=== PATIENT | male | born 1940 | race Caucasian/White ===

== ENCOUNTER 2017-03-13 20:42 | Emergency (ER) | payer MEDICARE, MEDICAID ==
[~2017-03-13] VITALS: Ht 190.5 cm; Wt 116.1 kg
[~2017-03-13 20:42] MED LIST: AMITIZA24 MCG PO; CARVEDILOL12.5 MG PO; HYDRALAZINE HCL25 M1 PO; METFORMIN1000 MG PO; POTASSIUM CHLO20 ME2 PO; PRAMIPEXOLE DIHY1 MG NG; SINEMET 25/1001 TAB PO
[2017-03-13] MEDS ORDERED: GABAPENTIN600 MG PO (20:54)
[2017-03-13] MEDS ORDERED: ACETAMINOPHEN &1 TA1 PO (20:56)
--- NOTE | 2017-03-13 21:04 | Emergency Room Report ---
History of Present Illness Time Seen by 2100 Presenting Problem in Triage Pt arrived:Wheelchair Presenting Problem:C/O INCREASED B/P AND UNABLE TO USE LEGS Onset of symptoms date/time:/ or onset unknown for:MEDICAL HX UNKNOWN Treatment Prior to Arrival: [employer] Provided by: Sepsis Risk Assessment: Temp: 100.4 B/P: 133/73 MAP: 93 Pulse: 82 Resp: 20 Recent fever? N Clinical Suspician of Infection? N Mental Status: 1 - Regular (Normal Baseline) Sepsis Risk:Low Sepsis Risk Have you (or family members/close friends) recently traveled outside the [place]? N If Yes, where/when: Have you had exposure to infectious disease within the past month? N TB? Other? Specify: Comment The patient states that he has felt ill for 1 week. He says his legs feel like weight. His feet are burning and tingling. He denies any weakness, burning, or tingling in his arms. No problems with speech. No headache. He denies back pain. Family states that he was here 2 weeks ago for low blood pressure. He says that his blood pressure has been doing well after he takes his medication. He is noted to have a low-grade fever here, he and family were unaware that he had a fever. He normally walks with a walker or cane. His relatives state that they had to wheel into the truck in a wheelchair and lift him into the truck today. ALLERGIES Coded Allergies: No Known Allergies (03/02/17) Home Medications Active Scripts Hydralazine Hcl (Hydralazine 25MG Tab) 25 MG PO BID #60 TAB Prov: 03/02/17 Reported Medications Lubiprostone (Amitiza) 24 MCG PO BID #180 POTASSIUM CHL (Potassium Chloride) 20 MEQ PO BID Pramipexole Dihydrochloride (Pramipexole) 1 MG NG TID CARBIDOPA/LEVODOPA (Carbidopa-Levodopa 25-100 Tab) 1 TAB PO QID METFORMIN HCL (Metformin) 1,000 MG PO BID Carvedilol 12.5 MG PO BID Gabapentin 600 MG PO BID #90 HYDROCODONE/ACETAMINOPHEN (Hydrocodon-Acetaminophn 10-325) 1 TAB PO DAILY #60 History Medical History General CAD? No Angina: No [place]: No Hypertension? Yes Hyperlipidemia? No CHF? No DVT? No PE? No COPD? No Asthma? No Anemia? No GERD? No Gastric ulcers? No GI Bleed? No Hernia? No Thyroid Problems? No Hypothyroidism? No CVA? No Seizures? No Diabetes? Yes Insulin Dependent: No Insulin Pump: No Home FSBS? Yes Renal Insuffiency? No End Stage Renal Disease? No UTI? No Stones? No BPH? No GB Disease: No Nephritic Syndrome? No Asplenia? No Hepatitis? No Sickle Cell Disease? No Arthritis? Yes Migraines? No Cataracts? Yes Glaucoma? No MRSA? No HIV? No TB? No Anxiety? No Depression? No Cancer? Yes Site: PROSTATE More? Yes Additional hx: PARKINSONS Immunization Hx DT/Tetanus Unknown Surgical Hx Previous Surgery?Y LT KNEE REPLACEMENT Hernia Repair RT ANKLE X4 CHOLECYSTECTOMY Social History Smoking Hx Smoker: Never Smoker Tobacco: No Alcohol Alcohol: No Review of Systems All Other Systems Reviewed and Negative Constitutional denies fever, malaise, weakness Eyes denies blindness, denies blurred vision ENT denies: ear pain, nose discharge, throat pain. Respiratory denies cough, denies shortness of breath Cardiovascular denies chest pain Gastrointestinal denies abdominal pain, denies diarrhea, denies vomiting Genitourinary denies: dysuria, frequency. Musculoskeletal other (chronic R leg pain) Skin denies rash Psychiatric/Neurological denies headache Physical Exam Vital Signs Vital Signs Date Time Temp Pulse Resp B/P Pulse O2 O2 Flow FiO2 Ox Delivery Rate 03/14 0020 63 20 134/76 95 03/13 2341 98.3 104 20 135/73 95 03/13 2301 98.5 108 20 129/74 95 03/13 2149 98.5 136 20 114/60 91 03/13 2043 100.4 82 20 133/73 94 General Appearance malaise Eye Exam - bilateral eye normal exam, bilateral eye PERRL, bilateral eye EOMI Ear, Nose, Throat hearing grossly normal, normal ENT inspection Neck normal inspection, non-tender, supple, full range of motion Respiratory Status Yes: trachea midline, chest symmetrical, non tender chest. No: respiratory distress. Lung Sounds bilateral: normal breath sounds, lungs clear. Cardiovascular normal exam, regular rate/rhythm, no peripheral edema, no gallop, no JVD, no murmur, no rub, normal peripheral pulses Peripheral Pulses Pulses normal Yes Gastrointestinal normal bowel sounds, normal exam, non tender, soft, no organomegaly Extremities non-tender, normal range of motion, normal inspection, venous stasis changes bilaterally, no signs of cellulitis, normal warmth, pulses, capillary refill. Normal movement of feet and toes. Able to lift each leg independently off the bed. Normal sensation. Neurologic alert, imaging analyst II-XII nml as tested, normal exam, oriented x 3, tremor of hands Mental status normal mood/affect Skin intact, normal color, warm/dry Lymphatic no adenopathy Medical Decision Making LABS/Meds/Orders Pt receiving controlled substance in ED? No Results/Orders Laboratory Tests 03/13/17 2359: Creatine Kinase 92 03/13/175: Influenza Type A Ag NOT DETECTED, Influenza Type B Ag NOT DETECTED 03/13/172134: Urine Color YELLOW, Urine Appearance CLEAR, Urine pH 6.0, Ur Specific [place] 1.025, Urine Protein 2+ H, Urine Ketones NEGATIVE, Urine Blood NEGATIVE, Urine Nitrate NEGATIVE, Urine Bilirubin NEGATIVE, Urine Urobilinogen 2.0, Ur Leukocyte Esterase NEGATIVE, Urine RBC 3-5, Urine WBC 3-5, Ur Squamous Epith Cells 3-5, Amorphous Sediment OCC, Urine Bacteria 1+, Hyaline Casts 3-5, Fine Granular Casts 3-5, Urine Mucus 1+, Urine Glucose NEGATIVE 03/13/172051: Lactic Acid 1.4 03/13/172051: Sodium 143, Potassium 4.7, Chloride 107, Carbon Dioxide 27, BUN 33 H, Creatinine 1.4 H, Estimated Creat Clear 75, Estimated GFR (MDRD) 49, Glucose 119 H, Calcium 8.4 L, Total Bilirubin 1.0, AST 17, ALT 19, Alkaline Phosphatase 102, B-Natriuretic Peptide 108 H, Total Protein 6.7, Albumin 3.3 L , Globulin 3.4 H, Albumin/Globulin Ratio 1.0 L, WBC 6.3, RBC 4.61, Hgb 14.1, Hct 43.3, MCV 93.9, RDW 13.2, Plt Count 177, MPV 6.6 L, Gran % 56.6, Gran # 3.5 , Lymphocytes % 33.2, Monocytes % 5.9, Eosinophils % 3.6, Basophils % 0.7, Lymphocytes # 2.1, Monocytes # 0.4, Eosinophils # 0.2, Basophils # 0.0, PUBS MCHC 32.7, MCH 30.7 Current Medication Orders Sig/Martín Start time Last Medication Dose Route Stop Time Status Admin Sodium Chloride 1,000 ML .STK-MED ONE 03/13 2302 DC IV Sodium Chloride 1,000 ML .Q1H1M 03/13 2200 DC 03/13 IV 03/13 Acetaminophen 1,000 MG ONCE ONE 03/13 2100 DC 03/13 PO 03/13 Sodium Chloride 10 ML PRN PRN 03/13 2100 AC IV 03/14 2048 Acetaminophen 0 .STK-MED ONE 03/13 2051 DC PO Orders Procedure Date/time Status CPK 03/13 2359 Complete INFLUENZA A&B ANTIGENS 03/13 2108 Complete ELECTROCARDIOGRAM REQUEST 03/13 2050 Active CHEST-PORTABLE 03/13 2050 Active IV SALINE LOCK 03/13 2050 Active CULTURE, BLOOD 03/13 2050 Active URINALYSIS/COMPLETE 03/13 2050 Complete LACTIC ACID 03/13 2050 Complete CBC WITH AUTO DIFF 03/13 2050 Complete CHEM 12 PROFILE 03/13 2050 Complete BRAIN NATRIURETIC PEPTIDE 03/13 2050 Complete 12 LEAD EKG-SATISH (INITIAL) 03/13 UNK Active CM/EKG CM/EKG Comments EKG interpreted by Joe Connelly MD: Rhythm: sinus Rate: 80 [place]: LEFT Ectopy: none Conduction: normal ST Segment Changes: none T Wave Changes: none Q Waves: none Poor R-wave progression No evidence of acute ischemia or injury Baseline artifact present, but I consider the EKG adequate for accurate interpretation. XRAY/CT/US XRAY/CT/US XRAY chest Comment X-ray interpreted by Joe Connelly M.D. No infiltrate, pneumothorax, pleural effusion, or wide mediastinum. Progress - 11:40 PM: Case discussed with Dr. Dominique for Dr. Bah. I am concerned about the possibility of Guillain-Blum syndrome. He requested that we try to transfer the patient to [place] for neurology evaluation. 2349: Case discussed with Dr. Cortes, [facility] neurologist. She accepts the patient be transferred to their emergency department. Departure Departure Disposition DC/XFER from ER to [facility] Clinical Impression Primary Impression: Bilateral leg weakness Secondary Impressions: Paresthesia of bilateral legs Condition STABLE Referrals Chalino Bah MD (Family) ED Critical Care Critical Care No at 0044
[2017-03-13 21:07] LABS: HEMOGLOBIN 14.1 g/dL (14.1-18.0); LYMPH # 2.1 K/mm3 (0.7-4.5); LYMPH % 33.2 % (10-50)
[2017-03-13 21:48] LABS: URINE BILIRUBIN - DIPSTICK NEGATIVE (NEG); URINE BLOOD NEGATIVE (NEG)
[2017-03-14 00:45] VITALS: BP 134/76
--- NOTE | 2017-03-14 08:31 | RADIOLOGY REPORT PS360 ---
CHEST-PORTABLE COMPARISON: None HISTORY: Generalized weakness TECHNIQUE: Portable upright chest FINDINGS: The lung roth are well expanded and appear clear of infiltrate. There is mild generalized cardiomegaly with left ventricular prominence but there is no evidence of failure. There are monitor lines overlying the chest. IMPRESSION: Cardiomegaly, no acute chest pathology noted
== END 2017-03-14 00:46 | disposition short-term general hospital (02) ==
LOC: ER 20:42
PROVIDERS: Emergency Medicine
DX: M62.81 Muscle weakness (generalized) (principal); R20.8 Other disturbances of skin sensation; I10 Essential (primary) hypertension; E11.9 Type 2 diabetes mellitus without complications; G20 Parkinson's disease

== ENCOUNTER → 2017-06-12 | Outpatient (CLI) | payer MEDICARE, MEDICAID ==
[~2017-06-12] MED LIST changes: +ACETAMINOPHEN &1 TA1 PO; +GABAPENTIN600 MG PO; +GLYCOLAX17 GM/DOSE PO; +MELATIN1 TAB PO; +METFORMIN 500M500 MG PO; +TRAMADOL 50MG T50 M1 PO
[2017-06-12 13:09] LABS: BUN 28 mg/dL (7-18); GFR (ESTIMATED) 59 ML/MIN (>60)
[2017-06-12 14:05] LABS: HEMOGLOBIN 13.8 g/dL (14.1-18.0); LYMPH # 1.4 K/mm3 (0.7-4.5); LYMPH % 20.8 % (10-50)
== END ==
LOC: LAB 11:40
PROVIDERS: Internal Medicine Adolescent Medicine
DX: I10 Essential (primary) hypertension (principal); E11.40 Type 2 diabetes mellitus with diabetic neuropathy, unspecified